=== PATIENT | male | born 1950 | race Caucasian/White ===

== ENCOUNTER → 2017-10-09 | Outpatient (REF) | payer MEDICARE, MEDICAID ==
[2017-10-09 13:30] LABS: ALBUMIN 3.3 GM/DL (3.2-5.2); ALBUMIN/GLOBULIN RATIO 0.92 (1.00-1.93); BILIRUBIN,TOTAL 0.5 MG/DL (0.2-1.0); CALCIUM LEVEL 8.8 MG/DL (8.8-10.2); CREATININE FOR GFR 1.92 MG/DL (0.70-1.30); GLOMERULAR FILTRATION RATE 37.4 (>49); POTASSIUM SERUM 4.6 MEQ/L (3.5-5.1); TOTAL PROTEIN 6.9 GM/DL (6.4-8.2)
== END ==
LOC: M SFHCLACO 08:22
PROVIDERS: ATTEND Physician Assistant
DX: E78.2 Mixed hyperlipidemia (principal); I12.9 Hypertensive chronic kidney disease with stage 1 through stage 4 chronic kidney disease, or unspecified chronic kidney disease; N18.3 Chronic kidney disease, stage 3 (moderate); M54.5 Low back pain; G47.00 Insomnia, unspecified

== ENCOUNTER → 2017-10-22 | Outpatient (CLI) | payer MEDICARE, MEDICAID ==
--- NOTE | 2017-10-22 12:13 | REP ---
Clinical: Emphysema . Comparison: 09/04/2015 . Technique: PA and lateral. Findings: The mediastinum and cardiac silhouette are normal. The lung briceno demonstrate chronic changes without acute consolidation, effusion, or pneumothorax. The skeletal structures are intact and normal. Impression: 1. No acute cardiopulmonary process. Signed by Tj Edmond MD 10/22/2017 12:04 P
== END ==
LOC: M SMT 11:35
PROVIDERS: ATTEND Internal Medicine Pulmonary Disease
DX: J43.2 Centrilobular emphysema (principal)

== ENCOUNTER → 2017-10-23 | Outpatient (CLI) | payer MEDICARE, MEDICAID ==
--- NOTE | 2017-10-23 09:24 | REP ---
Ventilation perfusion lung scan: History: Hypoxia. Central lobular emphysema. Comparison study is from June 07, 2011. Technique: 1.0 mCi technetium 99m DTPA aerosol is administered for the perfusion portion of the study and is followed by a 5.5 mCi intravenous dose of technetium-99m MAA for the perfusion examination. Eight planar images are acquired for each portion of the study. Comparison is also made with yesterday's chest x-ray. Scintigraphic findings: There is some central bronchial deposition of inspired tracer on the ventilation study bilaterally consistent with some degree of obstructive airways disease. The perfusion exam, however, shows homogeneous distribution of technetium MAA. No perfusion defect is seen. No significant change from the previous scintigraphy. Impression: Low probability scan for pulmonary embolism. Signed by Boris Lawrence MD 10/23/2017 04:15 P
== END ==
LOC: M RAD 07:46
PROVIDERS: ATTEND Internal Medicine Pulmonary Disease
DX: R09.02 Hypoxemia (principal); J43.2 Centrilobular emphysema
CPT/HCPCS: 78582; A9540; A9567

== ENCOUNTER → 2017-11-29 | Outpatient (CLI) | payer MEDICARE, MEDICAID | LOC: M RAD 07:11 | DX: M48.062 Spinal stenosis, lumbar region with neurogenic claudication (principal) ==

== ENCOUNTER → 2017-12-07 | Outpatient (CLI) | payer MEDICARE, MEDICAID | LOC: M PLARAD 09:43 | DX: M48.062 Spinal stenosis, lumbar region with neurogenic claudication (principal); M51.26 Other intervertebral disc displacement, lumbar region; M51.27 Other intervertebral disc displacement, lumbosacral region; I71.4 Abdominal aortic aneurysm, without rupture | CPT/HCPCS: 72148 ==

== ENCOUNTER 2018-01-10 17:45 | Emergency (ER) | payer MEDICARE, MEDICAID ==
[2018-01-10 19:04] LABS: BASO % 0.2 % (0.0-1.0); HEMATOCRIT 43.1 % (42.0-52.0); HEMOGLOBIN 14.8 g/dl (14.0-18.0); IMMATURE GRANULOCYTE % 0.5 % (0-3.0); LYMPH # 1.2 10^3/uL (1.5-4.5); LYMPH % 6.1 % (24.0-44.0); MEAN CORPUSCULAR HEMOGLOBIN 30.1 pg (27.0-33.0); MEAN CORPUSCULAR HGB CONC 34.3 g/dl (32.0-36.5); MEAN CORPUSCULAR VOLUME 87.8 fl (80.0-96.0); MONO # 0.8 10^3/uL (0.0-0.8); MONO % 4.5 % (0.0-5.0); NEUTROPHILS # 16.6 10^3/uL (1.8-7.7); NEUTROPHILS % 88.7 % (36.0-66.0); PLATELET COUNT, AUTOMATED 204 10^3/uL (150-450); RED BLOOD COUNT 4.91 10^6/uL (4.30-6.10); RED CELL DISTRIBUTION WIDTH 15.8 % (11.5-14.5); WHITE BLOOD COUNT 18.7 10^3/uL (4.0-10.0)
[2018-01-10 19:16] LABS: PROTHROMBIN TIME 14.4 SECONDS (12.4-14.5)
[2018-01-10 19:20] LABS: ALBUMIN 3.5 GM/DL (3.2-5.2); ALBUMIN/GLOBULIN RATIO 0.97 (1.00-1.93); ALKALINE PHOSPHATASE 147 U/L (45-117); ALT/SGPT 21 U/L (12-78); ANION GAP 7 MEQ/L (8-16); AST/SGOT 17 U/L (7-37); BILIRUBIN,DIRECT 0.2 MG/DL (0.0-0.2); BILIRUBIN,TOTAL 0.6 MG/DL (0.2-1.0); BLOOD UREA NITROGEN 36 MG/DL (7-18); CALCIUM LEVEL 9.2 MG/DL (8.8-10.2); CARBON DIOXIDE LEVEL 28 MEQ/L (21-32); CHLORIDE LEVEL 103 MEQ/L (98-107); CREATININE FOR GFR 1.92 MG/DL (0.70-1.30); GLOMERULAR FILTRATION RATE 37.3 (>49); GLUCOSE, FASTING 190 MG/DL (70-100); LIPASE 85 U/L (73-393); POTASSIUM SERUM 4.1 MEQ/L (3.5-5.1); SODIUM LEVEL 138 MEQ/L (136-145); TOTAL PROTEIN 7.1 GM/DL (6.4-8.2)
[2018-01-10 19:21] LABS: LACTIC ACID SEPSIS PROTOCOL 1.8 MMOL/L (0.4-2.0)
[2018-01-10] MEDS: MORPHINE 4 MG/ML 1ML VIAL (J2270) IV (20:30)
[2018-01-10] MEDS: ONDANSETRON 4MG/2ML VIAL (J2405) IV (20:30)
[2018-01-10] MEDS: FLEET ENEMA PR (21:30)
[2018-01-10] MEDS: MAGNESIUM CITRATE 300 ML BTL PO (21:30)
[2018-01-10 22:41] LABS: KETONE, URINE AUTO RFX NEGATIVE (NEGATIVE); LEUKOCYTE ESTERASE UR AUTO RFX NEGATIVE (NEGATIVE); NITRITE, URINE AUTO RFX NEGATIVE (NEGATIVE); RBC, URINE AUTO RFX 0 /HPF (0-3); SPECIFIC GRAVITY UR AUTO RFX 1.014 (1.002-1.035); SQUAM EPITHELIAL CELL UR AURFX 0 /HPF (0-6); WBC, URINE AUTO RFX 0 /HPF (0-3)
== END 2018-01-10 23:40 | disposition home or self-care (01) ==
LOC: M ED 17:45
DX: K59.00 Constipation, unspecified (principal); I72.2 Aneurysm of renal artery; M47.816 Spondylosis without myelopathy or radiculopathy, lumbar region; I25.10 Atherosclerotic heart disease of native coronary artery without angina pectoris; I10 Essential (primary) hypertension; J44.9 Chronic obstructive pulmonary disease, unspecified; I70.1 Atherosclerosis of renal artery; N18.2 Chronic kidney disease, stage 2 (mild); M10.9 Gout, unspecified; Z95.5 Presence of coronary angioplasty implant and graft; Z96.0 Presence of urogenital implants; Z87.891 Personal history of nicotine dependence; Z82.49 Family history of ischemic heart disease and other diseases of the circulatory system; Z79.82 Long term (current) use of aspirin; Z79.899 Other long term (current) drug therapy; Z79.52 Long term (current) use of systemic steroids
CPT/HCPCS: J2270

== ENCOUNTER → 2018-02-07 | Outpatient (REF) | payer MEDICARE, MEDICAID | LOC: M SFHCLACO 09:42 | DX: Z11.59 Encounter for screening for other viral diseases (principal) ==

== ENCOUNTER 2018-05-23 09:39 | Day surgery (SDC) | payer MEDICARE, MEDICAID ==
[2018-05-23] MEDS: ACETYLCHOLINE OPHTH SOLN 1% 2ML (MIOCHOL-E) As Ordered (06:53)
[~2018-05-23 09:39] MED LIST: MIDAZOLAM INJ 2 MG/2 ML VIAL (J2250) As Ordered; fentaNYL 100 MCG/2 ML INJECTION (J3010) As Ordered
[2018-05-23] MEDS: OFLOXACIN 0.3 % (OCUFLOX) OPTH SOL 5ML OD (10:46)
[2018-05-23] MEDS: TROPICAMIDE 1% OPHTH SOLN 2ML OD (10:46)
[2018-05-23] MEDS: PROPARACAINE 0.5% OPHTH SOL 15ML OD (10:46)
[2018-05-23] MEDS: PHENYLEPHRINE 2.5% OPHTH SOL 2ML OD (10:46)
[2018-05-23] MEDS: CEFUROXIME 1MG/0.1ML INTRACAMERAL INJ As Ordered (11:51)
[2018-05-23] MEDS: LIDOCAINE 0.75%/EPINEPHRINE 0.025% IN BSS 1ML SYR INTRACAMERAL (OR ONLY) As Ordered (11:51)
[2018-05-23] MEDS: BALANCED SALT IRRIGATION SOLUTION 500ML BAG (FOR OR EYE MACHINE) As Ordered (11:51)
[2018-05-23] MEDS: DUOVISC (0.50ML VISCOAT/0.55ML PROVISC) OPHTH KIT As Ordered (11:51)
[2018-05-23] MEDS: POVIDONE-IODINE 5% OPHTH PREP SOL 30ML As Ordered (11:51)
== END 2018-05-23 12:35 | disposition home or self-care (01) ==
LOC: M SDC 09:39
DX: H25.11 Age-related nuclear cataract, right eye (principal); I13.10 Hypertensive heart and chronic kidney disease without heart failure, with stage 1 through stage 4 chronic kidney disease, or unspecified chronic kidney disease; I25.10 Atherosclerotic heart disease of native coronary artery without angina pectoris; I73.9 Peripheral vascular disease, unspecified; E78.2 Mixed hyperlipidemia; J44.9 Chronic obstructive pulmonary disease, unspecified; M10.9 Gout, unspecified; G47.00 Insomnia, unspecified; M51.36 Other intervertebral disc degeneration, lumbar region; N18.3 Chronic kidney disease, stage 3 (moderate); Z95.5 Presence of coronary angioplasty implant and graft; M19.90 Unspecified osteoarthritis, unspecified site; Z79.899 Other long term (current) drug therapy; Z79.02 Long term (current) use of antithrombotics/antiplatelets; Z79.82 Long term (current) use of aspirin; Z87.891 Personal history of nicotine dependence
CPT/HCPCS: 66984

== ENCOUNTER → 2019-01-22 | Outpatient (REF) | payer MEDICARE, MEDICAID ==
[~2019-01-22] MED LIST changes: +AMBI12.52 PO; +AMOX500C PO; +ASPI1TAB PO; +ATOR80TA59 PO; +CARV25TA PO; +CLON0.3T; +CLOP75TA2 PO; +EZET10TA PO; +FLON1SPR NARES; +FURO20TA2 PO; +HYDR-3910; +IPRA2IN NEB; +IPRAT; -MIDAZOLAM INJ 2 MG/2 ML VIAL (J2250) As Ordered; +MINI1CAP PO; +NIFE30TA7 PO; +NIFE90TA20; +PRED10TA2; +SPIR-10; +STIO1AER NEB; +VENTAER INH; +ZETI10TA30; +ZYLO300T6 PO; -fentaNYL 100 MCG/2 ML INJECTION (J3010) As Ordered
== END ==
LOC: M LAB REF 12:41
PROVIDERS: ATTEND Physician Assistant
DX: J44.1 Chronic obstructive pulmonary disease with (acute) exacerbation (principal)

== ENCOUNTER → 2019-01-22 | Outpatient (CLI) | payer MEDICARE, MEDICAID ==
--- NOTE | 2019-01-22 12:22 | REP ---
Clinical: COPD. Technique: PA and lateral. Comparison: 10/22/2017. Findings: Mediastinum and cardiac silhouette are normal. Lung briceno demonstrate chronic interstitial changes consistent with COPD and relatively stable. Trace right basilar atelectasis. No effusion. No pneumothorax. Skeletal structures intact. Impression: Chronic changes. Possible trace right basilar atelectasis. Electronically Signed by Tj Edmond MD 01/22/2019 12:14 P
== END ==
LOC: M SMT 11:54
PROVIDERS: ATTEND Physician Assistant
DX: J98.11 Atelectasis (principal); J44.1 Chronic obstructive pulmonary disease with (acute) exacerbation

== ENCOUNTER → 2019-08-04 | Outpatient (CLI) | payer MEDICARE, MEDICAID ==
[~2019-08-04] MED LIST changes: -ASPI1TAB PO; +ASPI81TA26 PO; -EZET10TA PO; +EZET10TA21 PO; +ZETI10TA16; -ZETI10TA30
[2019-08-04 14:16] LABS: CALCIUM LEVEL 9.8 MG/DL (8.8-10.2); CREATININE FOR GFR 1.66 MG/DL (0.70-1.30); GLOMERULAR FILTRATION RATE 43.9 (>49); POTASSIUM SERUM 4.6 MEQ/L (3.5-5.1)
== END ==
LOC: M SMT 09:51
PROVIDERS: ATTEND Surgery Vascular Surgery
DX: Z48.812 Encounter for surgical aftercare following surgery on the circulatory system (principal)

== ENCOUNTER → 2019-08-14 | Outpatient (CLI) | payer MEDICARE, MEDICAID ==
[2019-08-14 15:22] LABS: ABG BASE EXCESS -3.6 (-2.0-2.0); ABG HCO3 19.5 MEQ/L (22.0-26.0); ABG O2 LITER FLOW 2; ABG O2 SATURATION 91.2 % (95.0-99.0); ABG PARTIAL PRESSURE CO2 30.9 mmHg (35.0-45.0); ABG STANDARD HCO3 21.3 MEQ/L (22.0-26.0); ABG TOTAL CO2 20.5 MEQ/L (23.0-31.0); ABG pH (ARTERIAL) 7.419 UNITS (7.350-7.450)
== END ==
LOC: M LAB 14:26
PROVIDERS: ATTEND Internal Medicine Pulmonary Disease
DX: J43.2 Centrilobular emphysema (principal)

== ENCOUNTER → 2019-08-14 | Outpatient (CLI) | payer MEDICARE, MEDICAID ==
--- NOTE | 2019-08-14 14:08 | REP ---
PA and lateral chest: Comparison is 01/22/2019. There is chronic hyperinflation compatible with COPD, unchanged. There are no acute infiltrates or pleural effusions. There are no masses or nodules. Cardiac size is normal. The central gavi are mildly enlarged, unchanged, possibly pulmonary hypertension. The mediastinum and skeletal structures are unremarkable for patient age. Impression: Chronic hyperinflation. No acute cardiopulmonary changes. Mildly enlarged gavi, unchanged, possibly pulmonary hypertension. Electronically Signed by Tim Guerin MD 08/14/2019 02:00 P
== END ==
LOC: M SMT 13:38
PROVIDERS: ATTEND Internal Medicine Pulmonary Disease
DX: J43.2 Centrilobular emphysema (principal)

== ENCOUNTER → 2021-01-25 | Outpatient (CLI) | payer MEDICARE, MEDICAID ==
[~2021-01-25] MED LIST changes: +NIFE1TAB52 PO; -NIFE30TA7 PO
[2021-01-25 14:08] LABS: HEMATOCRIT 55.8 % (42.0-52.0); HEMOGLOBIN 17.8 g/dl (13.5-17.5); MEAN CORPUSCULAR HEMOGLOBIN 29.2 pg (27.0-33.0); MEAN CORPUSCULAR HGB CONC 31.9 g/dl (32.0-36.5); MEAN CORPUSCULAR VOLUME 91.6 fl (80.0-96.0); PLATELET COUNT, AUTOMATED 164 10^3/uL (150-450); RED BLOOD COUNT 6.09 10^6/uL (4.30-6.10); WHITE BLOOD COUNT 11.9 10^3/uL (4.0-10.0)
[2021-01-25 14:37] LABS: CREATININE FOR GFR 1.79 MG/DL (0.70-1.30); GLOMERULAR FILTRATION RATE 40.1 (>42)
== END ==
LOC: M RAD 13:21
PROVIDERS: ATTEND Internal Medicine Pulmonary Disease
DX: J96.11 Chronic respiratory failure with hypoxia (principal)